=== PATIENT | female | born 1960 | race Caucasian/White ===

== ENCOUNTER 2016-09-01 22:05 | Emergency (ER) | payer OTHER ==
[~2016-09-01] VITALS: Ht 165.1 cm; Wt 68.0 kg
[2016-09-01 22:12] VITALS: BP 126/84
--- NOTE | 2016-09-02 00:29 | NUR ---
PT TAKEN TO BED 8
--- NOTE | 2016-09-02 00:30 | NUR ---
PT STATES SHE IS NOT IN PAIN BUT MORE DISCOMFORT AND DOESNT LIKE THE LOOK OF THE BRUISES
--- NOTE | 2016-09-02 00:30 | NUR ---
PATIENT PRESENTS TO ED WITH LEFT LEG PAIN, BRUISING AT F[place] AND MEDIAL SIDE OF FOOT. 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 DENIES N/V/D; SKIN IS PINK/WARM/DRY; AAOX4 WITH EVEN AND STEADY GAIT; LUNGS CLEAR BL; HR EVEN AND REGULAR; PT DENIES ANY FEVER, CP, SOB, OR COUGH AT THIS TIME; PATIENT STATES PAIN OF 0/10 AT THIS TIME; VSS; PATIENT POSITIONED FOR COMFORT; HOB ELEVATED; BEDRAILS UP X2; BED DOWN. ER MD MADE AWARE OF PT STATUS.
--- NOTE | 2016-09-02 00:35 | NUR ---
Dr. Cheng evaluating patient at bedside.
[2016-09-02 00:48] VITALS: BP 126/84
== END 2016-09-02 00:48 | disposition home or self-care (01) ==
LOC: MED 22:05
DX: L52 Erythema nodosum (principal); M32.9 Systemic lupus erythematosus, unspecified; G70.00 Myasthenia gravis without (acute) exacerbation; F17.210 Nicotine dependence, cigarettes, uncomplicated; Z71.6 Tobacco abuse counseling; Z88.8 Allergy status to other drugs, medicaments and biological substances